=== PATIENT | female | born 1980 | race Caucasian/White ===

== ENCOUNTER 2021-05-16 23:59 | Inpatient (IN) | payer OTHER ==
[~2021-05-16] VITALS: Ht 157.5 cm; Wt 67.6 kg
[~2021-05-16 23:59] MED LIST: CLEOCIN 150MG150 MG PO
[2021-05-17] MEDS ORDERED: NOVOLOG 10100 UNITS/ INJ (01:54)
[2021-05-17] MEDS ORDERED: HYDROCHLOROTHIA25 MG PO (01:54)
[2021-05-17] MEDS ORDERED: LEVEMIR100 UNIT/1 SQ (01:54)
[2021-05-17 12:48] LABS: BUN/CREATININE RATIO 13 (0-10)
--- NOTE | 2021-05-17 13:17 | NUR ---
1100 DR HOLLY PLACED A CVP LINE TO LEFT JUGLER WITHOUT ANY DIFFICULTIES, PT THAD WELL
--- NOTE | 2021-05-17 13:18 | NUR ---
1210 OK TO USE CVP PER DR HOLLY
[2021-05-19 04:32] LABS: HEMOGLOBIN 8.2 gm/dl (12.3-15.3); RED BLOOD COUNT 2.79 M/UL (4.00-5.10); WHITE BLOOD COUNT 7.3 K/UL (4.5-11.0)
[2021-05-19 04:58] LABS: BUN/CREATININE RATIO 15 (0-10)
[2021-05-19 07:11] LABS: ANTISTREPTOLYSIN O AB 239.2 IU/mL (0.0-200.0); COMPLEMENT C3, SERUM 114 mg/dL (82-167); COMPLEMENT C4, SERUM 30 mg/dL (12-38)
[2021-05-19 09:15] LABS: HBSAG SCREEN Negative (Negative); HEP A AB, IGM Negative (Negative); HEP B CORE AB, IGM Negative (Negative); HEP C VIRUS AB 6.8 (0.0-0.9)
[2021-05-19 13:10] LABS: ANTI-DSDNA ANTIBODIES 2 IU/mL (0-9)
[2021-05-19] MEDS ORDERED: LEVEMIR100 UNIT/1 SQ (13:40)
[2021-05-19] MEDS ORDERED: AMLODIPINE BESYL5 MG PO (13:40)
[2021-05-19] MEDS ORDERED: CARVEDILOL25 MG PO (13:40)
[2021-05-19] MEDS ORDERED: SODIUM BICARBO650 M1 PO (13:40)
[2021-05-19] MEDS ORDERED: HYGROTON TAB 2525 MG PO (13:40)
[2021-05-19] MEDS ORDERED: HYDRALAZINE HCL25 MG PO (13:40)
[2021-05-19] MEDS ORDERED: NOVOLOG FL100 UNIT/1 INJ (14:02)
[2021-05-19] MEDS ORDERED: LEVEMIR FL100 UNIT/1 SQ (14:02)
[2021-05-19 15:10] LABS: A/G RATIO 0.8 (0.7-1.7); ALBUMIN 2.1 g/dL (2.9-4.4); ALPHA-1-GLOBULIN 0.2 g/dL (0.0-0.4); ALPHA-2-GLOBULIN 0.8 g/dL (0.4-1.0); BETA GLOBULIN 0.8 g/dL (0.7-1.3); GAMMA GLOBULIN 0.8 g/dL (0.4-1.8); GLOBULIN, TOTAL 2.7 g/dL (2.2-3.9); IMMUNOGLOBULIN A, QN, SERUM 193 mg/dL (87-352); IMMUNOGLOBULIN G, QN, SERUM 812 mg/dL (586-1602); IMMUNOGLOBULIN M, QN, SERUM 48 mg/dL (26-217); M-SPIKE Not Observed g/dL (Not Observed); PROTEIN, TOTAL, SERUM 4.8 g/dL (6.0-8.5)
[2021-05-19 16:11] LABS: ATYPICAL PANCA <1:20 titer (Neg:<1:20); CYTOPLASMIC (C-ANCA) <1:20 titer (Neg:<1:20); PERINUCLEAR (P-ANCA) <1:20 titer (Neg:<1:20)
== END 2021-05-19 15:20 | disposition home or self-care (01) | DRG 683 ==
LOC: CCU 05-17 01:36
PROVIDERS: Internal Medicine; Internal Medicine Nephrology; ADMIT Internal Medicine
PROC: 02HV33Z Insertion of Infusion Device into Superior Vena Cava, Percutaneous Approach (ICD-10-PCS; principal; 2021-05-17)
PROC: B548ZZA Ultrasonography of Superior Vena Cava, Guidance (ICD-10-PCS; 2021-05-17)
DX: N17.9 Acute kidney failure, unspecified (principal); I16.1 Hypertensive emergency; E87.2 Acidosis; E87.5 Hyperkalemia; E11.22 Type 2 diabetes mellitus with diabetic chronic kidney disease; Z20.822 Contact with and (suspected) exposure to COVID-19; I13.10 Hypertensive heart and chronic kidney disease without heart failure, with stage 1 through stage 4 chronic kidney disease, or unspecified chronic kidney disease; E11.65 Type 2 diabetes mellitus with hyperglycemia; E11.21 Type 2 diabetes mellitus with diabetic nephropathy; F19.11 Other psychoactive substance abuse, in remission; D50.9 Iron deficiency anemia, unspecified; N18.30 Chronic kidney disease, stage 3 unspecified; F17.210 Nicotine dependence, cigarettes, uncomplicated; F41.9 Anxiety disorder, unspecified; F32.9 Major depressive disorder, single episode, unspecified; E11.319 Type 2 diabetes mellitus with unspecified diabetic retinopathy without macular edema; R91.1 Solitary pulmonary nodule; Z83.3 Family history of diabetes mellitus; Z79.4 Long term (current) use of insulin; Z79.899 Other long term (current) drug therapy; Z91.19 Patient's noncompliance with other medical treatment and regimen
CPT/HCPCS: 36415; 71045; 71250; 80048; 80053; 80074; 80307; 81001; 82272; 82550; 82553; 82570; 82607; 82652; 82746; 82784; 82962; 83036; 83520; 83540; 83550; 83605; 83735; 83883; 83930; 83935; 83970; 84100; 84133; 84155; 84156; 84165; 84300; 84484; 85025; 85045; 86038; 86060; 86140; 86160; 86162; 86225; 86256; 86334; 89050; 93005; C1751; J0360; J1644; J1650

== ENCOUNTER 2021-05-31 21:49 | Inpatient (IN) | payer OTHER ==
[~2021-05-31] VITALS: Ht 160 cm; Wt 82.3 kg
[~2021-05-31 21:49] MED LIST changes: +AMLODIPINE BESYL5 MG PO; +CARVEDILOL25 MG PO; +HYDRALAZINE HCL25 MG PO; +HYDROCHLOROTHIA25 MG PO; +HYGROTON TAB 2525 MG PO; +LEVEMIR FL100 UNIT/1 SQ; +LEVEMIR100 UNIT/1 SQ; +NOVOLOG 10100 UNITS/ INJ; +NOVOLOG FL100 UNIT/1 INJ; +SODIUM BICARBO650 M1 PO
[2021-05-31 23:18] LABS: HEMOGLOBIN 7.6 gm/dl (12.3-15.3); RED BLOOD COUNT 2.55 M/UL (4.00-5.10); WHITE BLOOD COUNT 9.7 K/UL (4.5-11.0)
[2021-05-31 23:54] LABS: BUN/CREATININE RATIO 22 (0-10)
[2021-06-04] MEDS ORDERED: LEVOFLOXACIN250 MG PO (10:10)
[2021-06-04] MEDS ORDERED: NICOTINE PATCH1 EAC2 TOP (10:10)
[2021-06-04] MEDS ORDERED: BUMETANIDE1 MG PO (10:10)
[2021-06-04] MEDS ORDERED: FERROUS SULFAT325 M2 PO (10:10)
[2021-06-04 11:36] LABS: RED BLOOD COUNT 2.08 M/UL (4.00-5.10)
[2021-06-04 11:45] LABS: HEMOGLOBIN 6.1 gm/dl (12.3-15.3)
[2021-06-05 05:47] LABS: HEMOGLOBIN 7.7 gm/dl (12.3-15.3)
[2021-06-05] MEDS ORDERED: LEVOFLOXACIN250 MG PO (11:40)
[2021-06-05] MEDS ORDERED: CLEOCIN HCL300 MG PO (11:46)
== END 2021-06-05 17:20 | disposition home or self-care (01) | DRG 682 ==
LOC: ER1 21:49 → CDU 06-01 03:18 → CCU 06-01 03:18 → M/S 06-03 16:22
PROVIDERS: Emergency Medicine; Internal Medicine Nephrology; ADMIT Internal Medicine
PROC: 30233N1 Transfusion of Nonautologous Red Blood Cells into Peripheral Vein, Percutaneous Approach (ICD-10-PCS; principal; 2021-06-01)
PROC: B24BZZ4 Ultrasonography of Heart with Aorta, Transesophageal (ICD-10-PCS; 2021-06-01)
PROC: 5A0945A Assistance with Respiratory Ventilation, 24-96 Consecutive Hours, High Flow/Velocity Cannula (ICD-10-PCS; 2021-06-01)
PROC: 02HV33Z Insertion of Infusion Device into Superior Vena Cava, Percutaneous Approach (ICD-10-PCS; 2021-06-01)
DX: N17.9 Acute kidney failure, unspecified (principal); I33.0 Acute and subacute infective endocarditis; J96.01 Acute respiratory failure with hypoxia; J18.9 Pneumonia, unspecified organism; I50.33 Acute on chronic diastolic (congestive) heart failure; I13.0 Hypertensive heart and chronic kidney disease with heart failure and stage 1 through stage 4 chronic kidney disease, or unspecified chronic kidney disease; I16.1 Hypertensive emergency; E87.4 Mixed disorder of acid-base balance; Z20.822 Contact with and (suspected) exposure to COVID-19; E11.22 Type 2 diabetes mellitus with diabetic chronic kidney disease; E11.40 Type 2 diabetes mellitus with diabetic neuropathy, unspecified; N18.30 Chronic kidney disease, stage 3 unspecified; R91.1 Solitary pulmonary nodule; F41.9 Anxiety disorder, unspecified; F32.9 Major depressive disorder, single episode, unspecified; K74.60 Unspecified cirrhosis of liver; B18.2 Chronic viral hepatitis C; F19.10 Other psychoactive substance abuse, uncomplicated; D63.1 Anemia in chronic kidney disease; F15.10 Other stimulant abuse, uncomplicated; F17.210 Nicotine dependence, cigarettes, uncomplicated; Z79.4 Long term (current) use of insulin; Z88.0 Allergy status to penicillin; Z87.01 Personal history of pneumonia (recurrent)
CPT/HCPCS: ECHO; 0240U; 36415; 36430; 36600; 71045; 71046; 71250; 80053; 80307; 81001; 82550; 82553; 82570; 82803; 82962; 83735; 83874; 83880; 83935; 84100; 84133; 84156; 84300; 84484; 84550; 85014; 85018; 85025; 85652; 86140; 86850; 86900; 86901; 86920; 87040; 87278; 89050; 93005; 93306; 94660; 94760; 96365; 99285; C1751; J0696; J1170; J1205; J1335; J1650; J1940; J2020; J2185; J2270; J2405; J7050; P9016; P9047

== ENCOUNTER 2021-08-01 19:46 | Inpatient (IN) | payer OTHER ==
[~2021-08-01] VITALS: Ht 160 cm; Wt 70.0 kg
[~2021-08-01 19:46] MED LIST changes: +BUMETANIDE1 MG PO; +CLEOCIN HCL300 MG PO; +FERROUS SULFAT325 M2 PO; +LEVOFLOXACIN250 MG PO; +NICOTINE PATCH1 EAC2 TOP
[2021-08-01 23:18] LABS: HEMOGLOBIN 8.1 gm/dl (12.3-15.3); RED BLOOD COUNT 2.86 M/UL (4.00-5.10); WHITE BLOOD COUNT 11.7 K/UL (4.5-11.0)
[2021-08-02 06:28] LABS: RED BLOOD COUNT 2.87 M/UL (4.00-5.10)
[2021-08-02 06:31] LABS: WHITE BLOOD COUNT 15.9 K/UL (4.5-11.0)
[2021-08-02] MEDS ORDERED: BUMETANIDE0.5 MG PO (11:14)
[2021-08-02] MEDS ORDERED: BUSPIRONE HCL10 MG PO (11:15)
[2021-08-02] MEDS ORDERED: CLONIDINE HCL0.1 MG PO (11:17)
[2021-08-02] MEDS ORDERED: DULOXETINE HCL60 MG PO (11:20)
[2021-08-02] MEDS ORDERED: HYDROCHLOROTHIA25 MG PO (11:23)
[2021-08-02] MEDS ORDERED: DRISDOL1250 MCG PO (11:23)
[2021-08-02] MEDS ORDERED: LORATADINE10 MG PO (11:24)
[2021-08-02] MEDS ORDERED: ROBAXIN 750 MG750 MG PO (11:24)
[2021-08-02] MEDS ORDERED: FERROUS SULFAT325 MG PO (11:25)
[2021-08-02] MEDS ORDERED: TYLENOL EXTRA500 MG PO (11:27)
[2021-08-02] MEDS ORDERED: LEVEMIR FL100 UNIT/1 INJ (11:29)
[2021-08-02] MEDS ORDERED: HUMALOG100 UNIT/3 INJ (11:30)
[2021-08-02] MEDS ORDERED: DAILY VALUE1 EACH PO (16:00)
[2021-08-03 05:42] LABS: WHITE BLOOD COUNT 16.5 K/UL (4.5-11.0)
[2021-08-03 05:44] LABS: RED BLOOD COUNT 2.41 M/UL (4.00-5.10)
[2021-08-03 05:45] LABS: HEMOGLOBIN 6.7 gm/dl (12.3-15.3)
[2021-08-03 21:54] LABS: HEMOGLOBIN 8.3 gm/dl (12.3-15.3)
[2021-08-04 05:59] LABS: HEMOGLOBIN 8.6 gm/dl (12.3-15.3); WHITE BLOOD COUNT 18.9 K/UL (4.5-11.0)
[2021-08-04 06:01] LABS: RED BLOOD COUNT 3.02 M/UL (4.00-5.10)
[2021-08-05 05:46] LABS: HEMOGLOBIN 8.4 gm/dl (12.3-15.3); RED BLOOD COUNT 2.9 M/UL (4.00-5.10); WHITE BLOOD COUNT 18.4 K/UL (4.5-11.0)
--- NOTE | 2021-08-06 04:38 | NUR ---
PATIENT BECAME EXTREMELY ANXIOUS AFTER HER NEBULIZER TREATMENTS TONIGHT. PATIENT ALSO VOMITED IMMEDIATELY FOLLOWING BOTH TREATMENTS. PATIENT WAS ABLE TO CALM DOWN RELATIVELY QUICKLY BUT RECOMMENDED TO RT THAT PATIENT NOT RECEIVE ANY MORE TREATMENTS UNTIL PHYSICIAN IS AWARE OF PATIENT'S REACTION TO THE RESPIRATORY MEDICATION.
[2021-08-07 03:52] LABS: HEMOGLOBIN 8.3 gm/dl (12.3-15.3); RED BLOOD COUNT 2.88 M/UL (4.00-5.10)
[2021-08-07 03:55] LABS: WHITE BLOOD COUNT 13.2 K/UL (4.5-11.0)
[2021-08-08 03:44] LABS: HEMOGLOBIN 8.2 gm/dl (12.3-15.3); RED BLOOD COUNT 2.77 M/UL (4.00-5.10); WHITE BLOOD COUNT 13.4 K/UL (4.5-11.0)
[2021-08-09 04:38] LABS: HEMOGLOBIN 8.1 gm/dl (12.3-15.3); RED BLOOD COUNT 2.81 M/UL (4.00-5.10); WHITE BLOOD COUNT 13.3 K/UL (4.5-11.0)
[2021-08-10 12:29] LABS: HEMOGLOBIN 8.8 gm/dl (12.3-15.3); RED BLOOD COUNT 2.98 M/UL (4.00-5.10); WHITE BLOOD COUNT 14.2 K/UL (4.5-11.0)
[2021-08-11 03:04] LABS: HEMOGLOBIN 9.7 gm/dl (12.3-15.3); RED BLOOD COUNT 3.38 M/UL (4.00-5.10); WHITE BLOOD COUNT 14.6 K/UL (4.5-11.0)
--- NOTE | 2021-08-11 15:12 | NUR ---
PT 02 87% ON ROOM AIR.
[2021-08-11] MEDS ORDERED: NORVASC5 MG PO (17:28)
== END 2021-08-11 20:30 | disposition home health service (06) | DRG 177 ==
LOC: ER1 19:46 → CCU 23:45 → CDU 23:45 → PROG CARE 23:45 → CCU 08-02 11:50 → PROG CARE 08-05 14:44
PROVIDERS: Internal Medicine; Internal Medicine Nephrology; Physician Assistant Medical; Surgery; ADMIT Internal Medicine
PROC: 3E0333Z Introduction of Anti-inflammatory into Peripheral Vein, Percutaneous Approach (ICD-10-PCS; 2021-08-01)
PROC: 3E02340 Introduction of Influenza Vaccine into Muscle, Percutaneous Approach (ICD-10-PCS; 2021-08-02)
PROC: 8E0ZXY6 Isolation (ICD-10-PCS; 2021-08-02)
PROC: 30233N1 Transfusion of Nonautologous Red Blood Cells into Peripheral Vein, Percutaneous Approach (ICD-10-PCS; principal; 2021-08-03)
DX: U07.1 COVID-19 (principal); J12.82 Pneumonia due to coronavirus disease 2019; J96.01 Acute respiratory failure with hypoxia; I33.0 Acute and subacute infective endocarditis; N18.4 Chronic kidney disease, stage 4 (severe); N17.9 Acute kidney failure, unspecified; E87.1 Hypo-osmolality and hyponatremia; F11.20 Opioid dependence, uncomplicated; E87.2 Acidosis; I12.9 Hypertensive chronic kidney disease with stage 1 through stage 4 chronic kidney disease, or unspecified chronic kidney disease; E11.65 Type 2 diabetes mellitus with hyperglycemia; B19.20 Unspecified viral hepatitis C without hepatic coma; F19.10 Other psychoactive substance abuse, uncomplicated; E11.22 Type 2 diabetes mellitus with diabetic chronic kidney disease; E86.0 Dehydration; K59.00 Constipation, unspecified; Z23 Encounter for immunization; D63.1 Anemia in chronic kidney disease; E11.40 Type 2 diabetes mellitus with diabetic neuropathy, unspecified; D50.9 Iron deficiency anemia, unspecified; F17.210 Nicotine dependence, cigarettes, uncomplicated; Z98.890 Other specified postprocedural states; Z88.0 Allergy status to penicillin; Z88.8 Allergy status to other drugs, medicaments and biological substances; Z79.4 Long term (current) use of insulin
CPT/HCPCS: 36415; 36600; 71045; 80048; 80053; 80307; 81001; 82009; 82436; 82550; 82553; 82570; 82728; 82803; 82962; 83540; 83550; 83605; 83735; 84133; 84156; 84300; 84484; 84702; 85014; 85018; 85025; 85027; 85379; 86140; 86850; 86870; 86900; 86901; 86920; 86922; 87040; 93005; 94640; 94760; 97161; 99285; J0360; J1100; J1200; J1644; J1956; J2060; J2405; J7030; J7040; P9016; P9047; Q4081; U0002

== ENCOUNTER 2021-08-13 12:51 | Inpatient (IN) | payer OTHER ==
[~2021-08-13] VITALS: Ht 157.5 cm; Wt 77.1 kg
[~2021-08-13 12:51] MED LIST changes: +BUMETANIDE0.5 MG PO; +BUSPIRONE HCL10 MG PO; +CLONIDINE HCL0.1 MG PO; +DAILY VALUE1 EACH PO; +DRISDOL1250 MCG PO; +DULOXETINE HCL60 MG PO; +FERROUS SULFAT325 MG PO; +HUMALOG100 UNIT/3 INJ; +LEVEMIR FL100 UNIT/1 INJ; +LORATADINE10 MG PO; +NORVASC5 MG PO; +ROBAXIN 750 MG750 MG PO; +TYLENOL EXTRA500 MG PO
[2021-08-13 18:29] LABS: HEMOGLOBIN 8.2 gm/dl (12.3-15.3)
[2021-08-13 18:33] LABS: RED BLOOD COUNT 2.87 M/UL (4.00-5.10); WHITE BLOOD COUNT 27.8 K/UL (4.5-11.0)
[2021-08-14 07:02] LABS: HEMOGLOBIN 7.6 gm/dl (12.3-15.3); RED BLOOD COUNT 2.59 M/UL (4.00-5.10); WHITE BLOOD COUNT 24.2 K/UL (4.5-11.0)
[2021-08-14 07:32] LABS: BUN/CREATININE RATIO 23 (0-10)
--- NOTE | 2021-08-14 12:23 | NUR ---
DR FELICIANO AT 0820 AM LEFT THORACENTESIS. 850ML REMOVED. PATIENT TOLERATED WELL. WILL CONTINUE TO MONITOR
[2021-08-14 15:49] LABS: BODY FLUID SOURCE PLEURAL; RBC (AUTOMATED) 1000 (0-100000); WBC (AUTOMATED) 543 (0-500)
[2021-08-14 15:50] LABS: MONONUCLEAR CELLS 39 (75-100); POLYMORPHONUCLEAR % 61 (0-25)
[2021-08-14 16:01] LABS: LDH, BODY FLUID 395 U/L; TOTAL PROTEIN, BODY FLUID 3.5 gm/dL
== END 2021-08-15 00:56 | disposition short-term general hospital (02) | DRG 291 ==
LOC: PROG CARE 16:22
PROVIDERS: ADMIT Internal Medicine
PROC: 5A09457 Assistance with Respiratory Ventilation, 24-96 Consecutive Hours, Continuous Positive Airway Pressure (ICD-10-PCS; principal; 2021-08-13)
PROC: 3E0333Z Introduction of Anti-inflammatory into Peripheral Vein, Percutaneous Approach (ICD-10-PCS; 2021-08-13)
PROC: 0W9B3ZZ Drainage of Left Pleural Cavity, Percutaneous Approach (ICD-10-PCS; 2021-08-14)
DX: I13.0 Hypertensive heart and chronic kidney disease with heart failure and stage 1 through stage 4 chronic kidney disease, or unspecified chronic kidney disease (principal); J96.01 Acute respiratory failure with hypoxia; I50.33 Acute on chronic diastolic (congestive) heart failure; J18.9 Pneumonia, unspecified organism; N17.9 Acute kidney failure, unspecified; N18.4 Chronic kidney disease, stage 4 (severe); I31.3 Pericardial effusion (noninflammatory); N30.00 Acute cystitis without hematuria; E87.1 Hypo-osmolality and hyponatremia; J91.8 Pleural effusion in other conditions classified elsewhere; B18.2 Chronic viral hepatitis C; J43.9 Emphysema, unspecified; E11.22 Type 2 diabetes mellitus with diabetic chronic kidney disease; D63.1 Anemia in chronic kidney disease; Z20.822 Contact with and (suspected) exposure to COVID-19; E11.65 Type 2 diabetes mellitus with hyperglycemia; F19.10 Other psychoactive substance abuse, uncomplicated; E11.21 Type 2 diabetes mellitus with diabetic nephropathy; F17.210 Nicotine dependence, cigarettes, uncomplicated; E88.09 Other disorders of plasma-protein metabolism, not elsewhere classified; Z87.01 Personal history of pneumonia (recurrent); Z71.6 Tobacco abuse counseling; Z79.899 Other long term (current) drug therapy; Z88.0 Allergy status to penicillin; Z95.818 Presence of other cardiac implants and grafts
CPT/HCPCS: ECHO; 36415; 36600; 71045; 71250; 80053; 81001; 82150; 82550; 82553; 82803; 82945; 82962; 83605; 83615; 83735; 83880; 83986; 84100; 84157; 84484; 84703; 85025; 85652; 86140; 87015; 87070; 87077; 87116; 87186; 87205; 87206; 89051; 93005; 93306; 94660; 94760; C9113; J1335; J1940; J2270; J2405; J3370; J3475; J7070; U0002

== ENCOUNTER 2022-03-23 12:31 | Inpatient (IN) | payer OTHER ==
[~2022-03-23] VITALS: Ht 160 cm; Wt 54.4 kg
[~2022-03-23 12:31] MED LIST changes: -HUMALOG100 UNIT/3 INJ; +HUMALOG100 UNIT/3 SQ; -LEVEMIR FL100 UNIT/1 INJ
[2022-03-23 13:27] LABS: HEMOGLOBIN 12.3 gm/dl (12.3-15.3); RED BLOOD COUNT 4.09 M/UL (4.00-5.10); WHITE BLOOD COUNT 6.7 K/UL (4.5-11.0)
[2022-03-23] MEDS ORDERED: NORVASC5 MG PO (14:09)
[2022-03-23] MEDS ORDERED: DOCUSATE SODIU100 MG PO (14:12)
[2022-03-23] MEDS ORDERED: PROTONIX 40 MG40 M1 PO (14:12)
[2022-03-23] MEDS ORDERED: MIRALAX17 GM PO (14:13)
[2022-03-23] MEDS ORDERED: BUMETANIDE2 MG PO (14:13)
[2022-03-23] MEDS ORDERED: RENVELA800 MG PO (14:13)
[2022-03-23] MEDS ORDERED: ZAROXOLYN/DIULO5 MG PO (14:14)
[2022-03-25 03:58] LABS: HEMOGLOBIN 11.1 gm/dl (12.3-15.3); RED BLOOD COUNT 3.61 M/UL (4.00-5.10); WHITE BLOOD COUNT 6.6 K/UL (4.5-11.0)
[2022-03-25 07:51] LABS: CANDIDA ALBICANS Not Detected (Negative); CANDIDA KRUSEI Not Detected (Negative); CANDIDA TROPICALIS Not Detected (Negative); ESCHERICHIA COLI Not Detected (Negative); HAEMOPHILUS INFLUENZAE Not Detected (Negative); KLEBSIELLA OXYTOCA Not Detected (Negative); KLEBSIELLA PNEUMONIAE Not Detected (Negative); KPC-CARBAPENEM-RESISTANCE GENE Not Detected (Negative); PROTEUS Not Detected (Negative); PSEUDOMONAS AERUGINOSA Not Detected (Negative); SERRATIA MARCESANS Not Detected (Negative); STAPHYLOCOCCUS AUREUS Not Detected (Negative); STREP AGALACTIAE (GROUP B) Not Detected (Negative); STREP PYOGENES (GROUP A) Not Detected (Negative); STREPTOCOCCUS Not Detected (Negative); vanA/B (VANCOMYCIN RESIST GENE Not Detected (Negative)
[2022-03-25 07:52] LABS: STAPHYLOCOCCUS DETECTED (Negative)
--- NOTE | 2022-03-25 19:30 | NUR ---
Rectal temperature low, Yana Hugger applied at this time.
--- NOTE | 2022-03-26 03:02 | NUR ---
Temperature low, Yana Hugger applied at this time.
--- NOTE | 2022-03-26 03:14 | NUR ---
patient pale, diaphoretic. Glucose level checked at this time. Glucose 47. 1 amp of D50 given. WCTM
[2022-03-26 05:04] LABS: RED BLOOD COUNT 3.32 M/UL (4.00-5.10)
[2022-03-26 05:06] LABS: WHITE BLOOD COUNT 3.7 K/UL (4.5-11.0)
[2022-03-29 19:12] LABS: HBSAG SCREEN Negative (Negative); HEP A AB, IGM Negative (Negative); HEP B CORE AB, IGM Negative (Negative); HEPATITIS C QUANTITATION HCV Not Detected IU/mL (.)
== END 2022-03-26 10:46 | disposition home or self-care (01) | DRG 682 ==
LOC: ER1 12:31 → CDU 14:56 → PROG CARE 14:56
PROVIDERS: Internal Medicine; Internal Medicine Nephrology; Nurse Practitioner; ADMIT Internal Medicine
PROC: 05HN33Z Insertion of Infusion Device into Left Internal Jugular Vein, Percutaneous Approach (ICD-10-PCS; principal; 2022-03-23)
PROC: 5A1D70Z Performance of Urinary Filtration, Intermittent, Less than 6 Hours Per Day (ICD-10-PCS; 2022-03-25)
DX: I12.0 Hypertensive chronic kidney disease with stage 5 chronic kidney disease or end stage renal disease (principal); N18.6 End stage renal disease; T68.XXXA Hypothermia, initial encounter; Z99.2 Dependence on renal dialysis; Z20.822 Contact with and (suspected) exposure to COVID-19; B18.2 Chronic viral hepatitis C; F15.10 Other stimulant abuse, uncomplicated; E87.6 Hypokalemia; F17.210 Nicotine dependence, cigarettes, uncomplicated; E11.21 Type 2 diabetes mellitus with diabetic nephropathy; D50.9 Iron deficiency anemia, unspecified; E11.22 Type 2 diabetes mellitus with diabetic chronic kidney disease; D63.1 Anemia in chronic kidney disease; Z79.899 Other long term (current) drug therapy; Z95.828 Presence of other vascular implants and grafts; Z88.0 Allergy status to penicillin; Z79.4 Long term (current) use of insulin
CPT/HCPCS: 0240U; 36415; 36600; 51701; 71045; 74018; 80048; 80053; 80074; 80202; 80307; 81001; 82009; 82150; 82550; 82553; 82803; 82962; 83605; 83690; 84484; 85025; 85610; 85652; 85730; 86140; 87040; 87077; 87086; 87150; 87186; 90935; 93005; 96374; 96375; 99285; C1751; J1644; J2185; J2405; J3370; J7030; J7070

== ENCOUNTER → 2022-04-14 | Outpatient (CLI) | payer OTHER ==
[~2022-04-14] MED LIST changes: +BUMETANIDE2 MG PO; +DOCUSATE SODIU100 MG PO; +MIRALAX17 GM PO; +PROTONIX 40 MG40 M1 PO; +RENVELA800 MG PO; +ZAROXOLYN/DIULO5 MG PO
== END ==
LOC: OPSV 12:49
DX: Z49.01 Encounter for fitting and adjustment of extracorporeal dialysis catheter (principal); N18.6 End stage renal disease
CPT/HCPCS: G0463